=== PATIENT | male | born 2000 | race Caucasian/White ===

== ENCOUNTER 2019-01-08 14:49 | Emergency (ER) | payer OTHER ==
[~2019-01-08] VITALS: Ht 175.3 cm; Wt 70.4 kg
[2019-01-08] MEDS ORDERED: IBUP80TA PO (16:34)
--- NOTE | 2019-01-08 16:40 | REP ---
SCROTAL ULTRASOUND: Real-time sonographic evaluation of the scrotum and contents are performed. Testicles are normal in size and echotexture, right testicle measuring 4.5 x 2.1 x 3.0 cm and left testicle 4.4 x 2.3 x 3.0 cm. There is no testicular mass or torsion, blood flow is seen in each testicle with duplex Doppler evaluation, RI right testicle is 0.47 and left testicle 0.53. Cyst in the head of the right epididymis measures 8 mm. Moderate sized left varicocele is seen above the left testicle with venous structures measuring up to 5 mm in diameter. This extends along the posterior testicle. This appears to correspond to the palpable abnormality on the left. IMPRESSION: No testicular mass or torsion. Moderate left varicocele. Small cyst right epididymis 8 mm. Electronically Signed by Vivek Cox MD 01/09/2019 11:11 A
[2019-01-08 16:51] VITALS: BP 129/59
[2019-01-08 17:59] LABS: CHLAMYDIA DNA AMPLIFICATION NEGATIVE (NEGATIVE); GC DNA AMPLIFICATION NEGATIVE (NEGATIVE)
== END 2019-01-08 16:53 | disposition home or self-care (01) ==
LOC: M ED 14:49
DX: I86.1 Scrotal varices (principal); N50.3 Cyst of epididymis